=== PATIENT | female | born 1995 | race Hispanic/Latino ===

== ENCOUNTER 2018-12-19 06:05 | Emergency (ER) | payer BC, SELFPAY | END 2018-12-19 06:33 | disposition home or self-care (01) | LOC: NAV ERS 06:05 | DX: O99.341 Other mental disorders complicating pregnancy, first trimester (principal); F41.9 Anxiety disorder, unspecified; O99.511 Diseases of the respiratory system complicating pregnancy, first trimester; J45.909 Unspecified asthma, uncomplicated; Z79.51 Long term (current) use of inhaled steroids | CPT/HCPCS: 99284 ==

== ENCOUNTER 2025-04-22 11:34 | Emergency (ER) | payer OTHER, SELFPAY | END 2025-04-22 12:36 | disposition home or self-care (01) | LOC: NAV ERS 11:34 | DX: S50.02XA Contusion of left elbow, initial encounter (principal); W22.8XXA Striking against or struck by other objects, initial encounter | CPT/HCPCS: 99283 ==

== ENCOUNTER 2025-06-10 14:54 | Emergency (ER) | payer SELFPAY ==
[2025-06-10] MEDS ORDERED: Sulfameth/Trimethoprim DS 800-160mg TAB ONE (15:15)
== END 2025-06-10 15:19 | disposition home or self-care (01) ==
LOC: NAV ERS 14:54
DX: L03.115 Cellulitis of right lower limb (principal)
CPT/HCPCS: 99283